=== PATIENT | female | born 1985 | race Caucasian/White ===

== ENCOUNTER 2019-11-18 22:48 | Emergency (ER) | payer OTHER ==
[2019-11-18] MEDS ORDERED: SODIUM CHLORIDE 0.9% 1,000 ML IV STA (23:17)
--- NOTE | 2019-11-18 23:25 | ED ---
Abdominal Pain HPI - General Chief Complaint: Abdominal Pain Stated Complaint: Chest Pain,Fever, Abdominal Pain Time Seen by Provider: 11/18/19 23:09 Source: patient, RN notes reviewed, old records reviewed Mode of arrival: ambulatory Limitations: no limitations - History of Present Illness Initial Comments: This is a 34-year-old female she presents today with nausea vomiting diarrhea and fever patient admits to chest pain and abdominal pain no recent travel history symptoms are progressing, No significant medical history denies drug or alcohol abuse. MD Complaint: abdominal pain -: days(s) Location: diffuse Migration to: no migration Severity: mild Severity scale (1-10): 3 Quality: aching Consistency: constant Improves With: nothing Worsens With: nothing Associated Symptoms: nausea, diarrhea - Related Data Allergies Allergy/AdvReac Type Severity Reaction Status Date / Time No Known Allergies Allergy Verified 11/18/19 23:00 Review of Systems ROS Statement: Those systems with pertinent positive or pertinent negative responses have been documented in the HPI. ROS Other: All systems not noted in ROS Statement are negative. Past Medical History Past Medical History: No Reported History History of Any Multi-Drug Resistant Organisms: None Reported Past Surgical History: Section Past Psychological History: No Psychological Hx Reported Smoking Status: Former smoker Past Alcohol Use History: None Reported Past Drug Use History: None Reported General Exam Limitations: no limitations General appearance: alert, in no apparent distress Head exam: Present: atraumatic, normocephalic, normal inspection Eye exam: Present: normal appearance, PERRL, EOMI. Absent: scleral icterus, conjunctival injection, periorbital swelling ENT exam: Present: normal exam, mucous membranes dry, mucous membranes moist Neck exam: Present: normal inspection. Absent: tenderness, meningismus, lymphadenopathy Respiratory exam: Present: normal lung sounds bilaterally. Absent: respiratory distress, wheezes, rales, rhonchi, stridor Cardiovascular Exam: Present: normal rhythm, tachycardia, normal heart sounds. Absent: systolic murmur, diastolic murmur, rubs, gallop, clicks GI/Abdominal exam: Present: soft, normal bowel sounds. Absent: distended, tenderness, guarding, rebound, rigid Extremities exam: Present: normal inspection, full ROM, normal capillary refill. Absent: tenderness, pedal edema, joint swelling, calf tenderness Back exam: Present: normal inspection Neurological exam: Present: alert, oriented X3, CN II-XII intact Psychiatric exam: Present: normal affect, normal mood Skin exam: Present: warm, dry, intact, normal color. Absent: rash Course Vital Signs 11/18/19 11/19/19 11/19/19 22:55 03:33 03:56 Temperature 101.8 F H 98.0 F Pulse Rate 132 H 67 Respiratory 22 16 Rate Blood Pressure 109/73 92/60 99/63 O2 Sat by Pulse 94 L 100 Oximetry - Reevaluation(s) Reevaluation #1: Medical record is reviewed patient continued with pain now progressing computed tomography scan Patient's symptoms improved currently Medical Decision Making - Medical Decision Making 32 female DF for evaluation symptoms apparently resolved now. Patient can be discharged home - Lab Data Result diagrams: 11/18/19 23:52 11/18/19 23:30 Lab Results 11/18/19 11/18/19 11/18/19 Range/Units 23:30 23:52 23:52 WBC 7.9 (3.8-10.6) k/uL RBC 4.91 (3.80-5.40) m/uL Hgb 14.8 (11.4-16.0) gm/dL Hct 44.6 (34.0-46.0) % MCV 90.8 (80.0-100.0) fL MCH 30.2 (25.0-35.0) pg MCHC 33.3 (31.0-37.0) g/dL RDW 13.0 (11.5-15.5) % Plt Count 208 (150-450) k/uL Neutrophils % 86 % Lymphocytes % 8 % Monocytes % 4 % Eosinophils % 2 % Basophils % 0 % Neutrophils # 6.7 (1.3-7.7) k/uL Lymphocytes # 0.7 L (1.0-4.8) k/uL Monocytes # 0.3 (0-1.0) k/uL Eosinophils # 0.1 (0-0.7) k/uL Basophils # 0.0 (0-0.2) k/uL PT 9.9 (9.0-12.0) sec INR 1.0 (<1.2) APTT 20.7 L (22.0-30.0) sec D-Dimer 1.14 H (<0.60) mg/L FEU Sodium 135 L (137-145) mmol/L Potassium 4.3 (3.5-5.1) mmol/L Chloride 108 H (98-107) mmol/L Carbon Dioxide 17 L (22-30) mmol/L Anion Gap 10 mmol/L BUN 14 (7-17) mg/dL Creatinine 0.74 (0.52-1.04) mg/dL Est GFR (CKD-EPI)AfAm >90 (>60 ml/min/1.73 sqM) Est GFR (CKD-EPI)NonAf >90 (>60 ml/min/1.73 sqM) Glucose 111 H (74-99) mg/dL Plasma Lactic Acid Pepe (0.7-2.0) mmol/L Calcium 9.1 (8.4-10.2) mg/dL Magnesium 1.8 (1.6-2.3) mg/dL Ferritin 54.1 (10.0-291.0) ng/mL Total Bilirubin 0.6 (0.2-1.3) mg/dL AST 45 H (14-36) U/L ALT 24 (4-34) U/L Alkaline Phosphatase 80 (38-126) U/L Lactate Dehydrogenase 704 H (313-618) U/L C-Reactive Protein 25.6 H (<10.0) mg/L Total Protein 7.4 (6.3-8.2) g/dL Albumin 4.3 (3.5-5.0) g/dL Lipase 139 (23-300) U/L Procalcitonin (0.02-0.09) ng/mL Coronavirus (PCR) (Not Detected) 11/18/19 11/18/19 11/18/19 Range/Units 23:52 23:52 23:59 WBC (3.8-10.6) k/uL RBC (3.80-5.40) m/uL Hgb (11.4-16.0) gm/dL Hct (34.0-46.0) % MCV (80.0-100.0) fL MCH (25.0-35.0) pg MCHC (31.0-37.0) g/dL RDW (11.5-15.5) % Plt Count (150-450) k/uL Neutrophils % % Lymphocytes % % Monocytes % % Eosinophils % % Basophils % % Neutrophils # (1.3-7.7) k/uL Lymphocytes # (1.0-4.8) k/uL Monocytes # (0-1.0) k/uL Eosinophils # (0-0.7) k/uL Basophils # (0-0.2) k/uL PT (9.0-12.0) sec INR (<1.2) APTT (22.0-30.0) sec D-Dimer (<0.60) mg/L FEU Sodium (137-145) mmol/L Potassium (3.5-5.1) mmol/L Chloride (98-107) mmol/L Carbon Dioxide (22-30) mmol/L Anion Gap mmol/L BUN (7-17) mg/dL Creatinine (0.52-1.04) mg/dL Est GFR (CKD-EPI)AfAm (>60 ml/min/1.73 sqM) Est GFR (CKD-EPI)NonAf (>60 ml/min/1.73 sqM) Glucose (74-99) mg/dL Plasma Lactic Acid Pepe 1.5 (0.7-2.0) mmol/L Calcium (8.4-10.2) mg/dL Magnesium (1.6-2.3) mg/dL Ferritin (10.0-291.0) ng/mL Total Bilirubin (0.2-1.3) mg/dL AST (14-36) U/L ALT (4-34) U/L Alkaline Phosphatase (38-126) U/L Lactate Dehydrogenase (313-618) U/L C-Reactive Protein (<10.0) mg/L Total Protein (6.3-8.2) g/dL Albumin (3.5-5.0) g/dL Lipase (23-300) U/L Procalcitonin 0.20 H (0.02-0.09) ng/mL Coronavirus (PCR) Not Detected (Not Detected) - EKG Data -: EKG Interpreted by Me (EKG is sinus tachycardia 126 120 QRS 60 QTC 446) - Radiology Data Radiology results: report reviewed (Chest x-ray x-ray KUB K chest CT abdomen and pelvis negative for acute disease), image reviewed Disposition Clinical Impression: Abdominal pain, Gastroenteritis Disposition: HOME SELF-CARE Condition: Good Instructions (If sedation given, give patient instructions): Gastroenteritis (ED) Is patient prescribed a controlled substance at d/c from ED?: No Referrals: None,Stated [Primary Care Provider] - 1-2 days
[2019-11-18] MEDS ORDERED: PANTOPRAZOLE 40 MG/10 ML VIAL IVP STA (23:36)
[2019-11-18] MEDS ORDERED: DICYCLOMINE 10 MG/ML 2 ML AMP IM STA (23:36)
[2019-11-18] MEDS ORDERED: KETOROLAC 30 MG/ML 1 ML VIAL IVP STA (23:36)
[2019-11-18] MEDS ORDERED: ONDANSETRON 4 MG/2 ML VIAL IVP STA (23:36)
[2019-11-18] MEDS ORDERED: ACETAMINOPHEN TAB 500 MG TAB PO STA (23:36)
[2019-11-19 00:07] LABS: Basophils % (A) 0 %; Eosinophils # (A) 0.1 k/uL (0-0.7); Eosinophils % (A) 2 %; HCT 44.6 % (34.0-46.0); HGB 14.8 gm/dL (11.4-16.0); Lymphocytes # (A) 0.7 k/uL (1.0-4.8); Lymphocytes % (A) 8 %; MCH 30.2 pg (25.0-35.0); MCHC 33.3 g/dL (31.0-37.0); MCV 90.8 fL (80.0-100.0); Mean Platelet Volume 8.3; Monocytes # (A) 0.3 k/uL (0-1.0); Monocytes % (A) 4 %; Neutrophils # (A) 6.7 k/uL (1.3-7.7); Neutrophils % (A) 86 %; Platelet Count 208 k/uL (150-450); RBC 4.91 m/uL (3.80-5.40); WBC 7.9 k/uL (3.8-10.6)
[2019-11-19 00:21] LABS: ALT 24 U/L (4-34); AST 45 U/L (14-36); African American GFR (CKD) >90 (>60 ml/min/1.73 sqM); Albumin 4.3 g/dL (3.5-5.0); Alkaline Phosphatase 80 U/L (38-126); Anion Gap 10 mmol/L; Blood Urea Nitrogen 14 mg/dL (7-17); C Reactive Protein 25.6 mg/L (<10.0); Calcium 9.1 mg/dL (8.4-10.2); Carbon Dioxide 17 mmol/L (22-30); Chloride 108 mmol/L (98-107); Glucose 111 mg/dL (74-99); LDH 704 U/L (313-618); Magnesium 1.8 mg/dL (1.6-2.3); Non-African American GFR(CKD) >90 (>60 ml/min/1.73 sqM); Potassium 4.3 mmol/L (3.5-5.1); Sodium 135 mmol/L (137-145); Total Bilirubin 0.6 mg/dL (0.2-1.3); Total Protein 7.4 g/dL (6.3-8.2)
[2019-11-19 00:26] LABS: Prothrombin Time 9.9 sec (9.0-12.0)
[2019-11-19 00:32] LABS: D-Dimer 1.14 mg/L FEU (<0.60); Partial Thromboplastin Time 20.7 sec (22.0-30.0)
--- NOTE | 2019-11-19 01:07 | XR ---
EXAMINATION TYPE: XR chest 1V portable DATE OF EXAM: 11/19/2019 COMPARISON: NONE HISTORY: Short of breath TECHNIQUE: Single view FINDINGS: Heart and mediastinum are normal. Lungs are clear. Diaphragm is normal. Bony thorax appears normal. IMPRESSION: Normal chest. Normal heart.
--- NOTE | 2019-11-19 01:08 | XR ---
EXAMINATION TYPE: XR KUB DATE OF EXAM: 11/19/2019 COMPARISON: NONE HISTORY: Abdominal pain TECHNIQUE: 2 views supine FINDINGS: There is no sign of intestinal obstruction or pneumoperitoneum. Fecal pattern is normal. Th ere is no sign of a mass. There is IUD noted. There are no pathologic calcifications over the kidneys . IMPRESSION: Nonacute abdomen.
--- NOTE | 2019-11-19 02:58 | CT ---
EXAMINATION TYPE: CT angio chest DATE OF EXAM: 11/19/2019 COMPARISON: None HISTORY: Elevated D-Dimer CT DLP: 858.8 mGycm Automated exposure control for dose reduction was used. CONTRAST: Performed with IV Contrast, patient injected with 100 mL of Isovue 370. There are 3-D post processed images. The lungs are clear of infiltrate. There is no evidence of pleural effusion or pneumothorax. Heart si ze is normal. There is no pericardial effusion. There are no hilar masses. There is no mediastinal adenopathy. Thoracic spine is intact. There is no compression fracture. Bony thorax is intact. Upper abdominal so ft tissues are intact. There is normal contrast opacification of the pulmonary arteries. There are no filling defects. IMPRESSION: Negative CT scan of the chest. No evidence of pulmonary embolism.
--- NOTE | 2019-11-19 03:03 | CT ---
EXAMINATION TYPE: CT abdomen pelvis w con DATE OF EXAM: 11/19/2019 COMPARISON: None HISTORY: Fever CT DLP: 2262.2 mGycm Automated exposure control for dose reduction was used. CONTRAST: Performed with IV Contrast, patient injected with 100 mL of Isovue 370. Lung bases are clear. There is no pleural effusion. Liver spleen stomach pancreas gallbladder appear normal. Bile ducts are not dilated. Gallbladder is contracted. There is no adrenal mass. Kidneys show satisfactory contrast opacification. There is no hydronephrosi s. There is normal excretion on the delayed images. There is no retroperitoneal adenopathy. Ureters a re not dilated. Bladder distends smoothly. There is IUD in the uterus. Uterus is anteverted. There is no free fluid in the pelvis. There is no inguinal hernia. There is no evidence of pelvic mass. There is no mesenteric edema. There is no ascites or free air. There is no sign of a bowel obstructio n. Appendix is posterior and appears normal. Lumbar vertebra have normal spacing and alignment. Poste rior elements are intact. Bony pelvis is intact. IMPRESSION: Negative CT scan of the abdomen pelvis. Normal appendix.
[2019-11-19] MEDS ORDERED: ONDANSETRON 4 MG ODT STARTER PACK 2 TAB BTL PO STA (03:14)
[2019-11-19] MEDS ORDERED: SODIUM CHLORIDE 0.9% 1,000 ML IV STA (03:15)
[2019-11-19 03:33] VITALS: PULSE 67; RESP 16; TEMP 98
[2019-11-19 04:01] VITALS: BP 99/63
[2019-11-19 11:16] LABS: Ferritin 54.1 ng/mL (10.0-291.0)
== END 2019-11-19 04:18 | disposition home or self-care (01) ==
LOC: EC 22:48
DX: K52.9 Noninfective gastroenteritis and colitis, unspecified (principal); R07.9 Chest pain, unspecified; Z20.828 Contact with and (suspected) exposure to other viral communicable diseases; Z87.891 Personal history of nicotine dependence; Z53.8 Procedure and treatment not carried out for other reasons
CPT/HCPCS: 99285; 96374; 96375 ×2; 96361; 96372; 36415; 93005; 85379; 80053; 82728; 83605; 83615; 83690; 83735; 85025; 85610; 85730; 86140; 87040; 84145; 71045; 74018; 71275; 74177; U0003; J0500; J2405; J1885; S0119; C9113; Q9967

== ENCOUNTER 2020-09-11 09:40 | Emergency (ER) | payer OTHER ==
--- NOTE | 2020-09-11 10:18 | ED ---
URI HPI - General Chief Complaint: Upper Respiratory Infection Stated Complaint: fever/body aches Time Seen by Provider: 09/11/20 09:44 Source: patient Limitations: no limitations - History of Present Illness Initial Comments: 35-year-old female presenting today for chief complaint of fevers body aches and cough. Patient states she's had fever body aches and cough since Monday. Patient states that she has some slight shortness of breath he said today she takes a deep breath it feels tight she denies a sharp stabbing pain she denies hemoptysis lower extremity swelling. She denies any history of DVT pulmonary embolism. 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 Patient denies any exogenous hormone use. Patient denies any recent surgeries immobilization. Patient denies any nausea vomiting diarrhea or abdominal pain. Upon arrival patient appears well nontoxic distress. feel very warm to touch - Related Data Home Medications Medication Instructions Recorded Confirmed No Known Home Medications 09/11/20 09/11/20 Allergies Allergy/AdvReac Type Severity Reaction Status Date / Time No Known Allergies Allergy Verified 09/11/20 11:07 Review of Systems ROS Statement: Those systems with pertinent positive or pertinent negative responses have been documented in the HPI. ROS Other: All systems not noted in ROS Statement are negative. Past Medical History Past Medical History: No Reported History History of Any Multi-Drug Resistant Organisms: None Reported Past Surgical History: Section Past Psychological History: No Psychological Hx Reported Smoking Status: Never smoker Past Alcohol Use History: None Reported Past Drug Use History: None Reported General Exam - General Exam Comments Initial Comments: General: The patient is awake and alert, in no distress, and does not appear acutely ill. Eye: Pupils are equal, round and reactive to light, extra-ocular movements are intact. No nystagmus. There is normal conjunctiva bilaterally. No signs of icterus. Ears, nose, mouth and throat: There are moist mucous membranes and no oral lesions. Neck: The neck is supple, there is no tenderness or JVD. Cardiovascular: There is a regular rate and rhythm. No murmur, rub or gallop is appreciated. Respiratory: Lungs are clear to auscultation, respirations are non-labored, breath sounds are equal. No wheezes, stridor, rales, or rhonchi. Musculoskeletal: Normal ROM, no tenderness. Strength 5/5. Sensation intact. Pulses equal bilaterally 2+. Neurological: A&O x 3. CN II-XII intact, There are no obvious motor or sensory deficits. Coordination appears grossly intact. Speech is normal. Skin: Skin is warm and dry and no rashes or lesions are noted. Psychiatric: Cooperative, appropriate mood & affect, normal judgment. Limitations: no limitations Course Vital Signs 09/11/20 09/11/20 09:42 10:48 Temperature 99 F 98.9 F Pulse Rate 110 H 106 H Respiratory 22 18 Rate Blood Pressure 118/80 114/65 O2 Sat by Pulse 96 96 Oximetry Medical Decision Making - Medical Decision Making Very well-appearing 35-year-old female. Chest x-ray reveals a pneumonia felt to be likely viral given patient's covert positive test. Patient appears in no distress she is saturating well on room air. She denies any sharp chest pains or pain with deep inspiration. Patient has no extremity findings. She is very warm to touch and temperature in room on my measurement 99.9F. pt given tylenol. pt will be discharged with pcp f/u. discussed monoclonal ab risk vs benefit and pt would like to decline at this time. - Lab Data Lab Results 09/11/20 Range/Units 09:56 Coronavirus (PCR) Detected A (Not Detectd) Disposition Clinical Impression: Fever, Body aches, Cough, Pneumonia due to COVID-19 virus Disposition: HOME SELF-CARE Condition: Good Instructions (If sedation given, give patient instructions): Coronavirus Disease 2019 (COVID-19) Additional Instructions: Please use medication as discussed. Please follow-up with family doctor in the next 2 days. Please return to emergency room if the symptoms increase or worsen or for any other concerns. Is patient prescribed a controlled substance at d/c from ED?: No Referrals: None,Stated [Primary Care Provider] - 1-2 days Time of Disposition: 11:19
--- NOTE | 2020-09-11 10:35 | XR ---
EXAMINATION TYPE: XR chest 2V DATE OF EXAM: 09/11/2020 COMPARISON: Chest x-ray 11/19/2019 HISTORY: Covid symptoms, infection TECHNIQUE: Frontal and lateral views of the chest are obtained. FINDINGS: Airspace disease is present in the right upper lobe. No evident pneumothorax or pleural ef fusion. Cardiac mediastinal silhouette is stable. There is a spinal curvature. IMPRESSION: Correlate for right upper lobe pneumonia.
[2020-09-11 10:49] VITALS: BP 114/65; PULSE 106; RESP 18; TEMP 98.9
[2020-09-11] MEDS ORDERED: ACETAMINOPHEN TAB 325 MG TAB PO STA (10:53)
== END 2020-09-11 11:30 | disposition home or self-care (01) ==
LOC: EC 09:40
DX: U07.1 COVID-19 (principal); J12.82 Pneumonia due to coronavirus disease 2019
CPT/HCPCS: 71046; 87635; 99285

== ENCOUNTER 2020-09-12 16:33 | Emergency (ER) | payer OTHER ==
[2020-09-12] MEDS ORDERED: ACETAMINOPHEN TAB 325 MG TAB PO STA (16:49)
[2020-09-12] MEDS ORDERED: SODIUM CHLORIDE 0.9% 1,000 ML IV STA (16:49)
--- NOTE | 2020-09-12 17:09 | ED ---
Fever HPI - General Chief Complaint: Fever Stated Complaint: YAMILET Time Seen by Provider: 09/12/20 16:48 Source: patient, RN notes reviewed Mode of arrival: ambulatory Limitations: no limitations - History of Present Illness Initial Comments: Well-appearing, well-nourished, 35-year-old white female patient presents to the emergency room with complaints of body aches that started on September 05, patient states took 2 home test and both negative for covid, came to the emergency room today with shortness of breath and fever and worsening body aches and tested positive. Patient was seen yesterday for the same return today because she feels worse. Patient states yesterday she declined monoclonal antibodies because she is breast-feeding and there wasn't enough research. Patient denies any medical history, is not a smoker, does not take any medications on a daily basis. Patient states body aches or 8 out of 10.. Patient able to tolerate fluids orally. -: days(s) (7) Temperature Source: oral Associated Symptoms: myalgias, shortness of breath Treatments Prior to Arrival: none - Related Data Previous Rx's Medication Instructions Recorded Albuterol Inhaler [Ventolin Hfa 1 puff INHALATION RT-QID PRN 30 09/11/20 Inhaler] Days #30 puff Allergies Allergy/AdvReac Type Severity Reaction Status Date / Time No Known Allergies Allergy Verified 09/12/20 16:37 Review of Systems ROS Statement: Those systems with pertinent positive or pertinent negative responses have been documented in the HPI. ROS Other: All systems not noted in ROS Statement are negative. Past Medical History Past Medical History: No Reported History Additional Past Medical History / Comment(s): Covid 09/09 History of Any Multi-Drug Resistant Organisms: None Reported Past Surgical History: Section Past Psychological History: No Psychological Hx Reported Smoking Status: Never smoker Past Alcohol Use History: None Reported Past Drug Use History: None Reported General Exam Limitations: no limitations General appearance: alert, in no apparent distress Head exam: Present: atraumatic, normocephalic, normal inspection Eye exam: Present: normal appearance, PERRL, EOMI. Absent: scleral icterus, conjunctival injection, periorbital swelling ENT exam: Present: normal exam, normal oropharynx, mucous membranes moist Neck exam: Present: normal inspection, full ROM. Absent: tenderness, meningismus, lymphadenopathy, thyromegaly Respiratory exam: Present: normal lung sounds bilaterally (diminished at bases r/t body habitus). Absent: respiratory distress, wheezes, rales, rhonchi, stridor Cardiovascular Exam: Present: tachycardia, normal heart sounds GI/Abdominal exam: Present: soft, normal bowel sounds. Absent: distended, tenderness, guarding, rebound, rigid Neurological exam: Present: alert, oriented X3, CN II-XII intact Psychiatric exam: Present: normal affect, normal mood Skin exam: Present: warm, dry, intact, normal color. Absent: rash Course Vital Signs 09/12/20 09/12/20 09/12/20 16:34 17:37 18:00 Temperature 101.1 F H Pulse Rate 117 H 111 H 111 H Respiratory 24 18 18 Rate Blood Pressure 104/64 128/82 123/79 O2 Sat by Pulse 93 L 95 95 Oximetry 09/12/20 09/12/20 09/12/20 19:08 19:09 20:00 Temperature 99.2 F 98.9 F Pulse Rate 104 H 107 H Respiratory 18 18 22 Rate Blood Pressure 118/78 103/61 O2 Sat by Pulse 95 94 L Oximetry Medical Decision Making - Medical Decision Making Chest x-ray the right upper lobe pneumonia similar to the scene or slight improvement from yesterday. WBC count 2.9. Patient agreed to monoclonal antibodies and tolerated well. Patient will be discharged home after infusion to follow up with the primary care doctor. Case discussed with Dr. Carr who was agreeable to this plan of care - Lab Data Result diagrams: 09/12/20 17:03 09/12/20 17:03 Lab Results 09/12/20 09/12/20 09/12/20 Range/Units 17:03 17:03 17:03 WBC 2.9 L (3.8-10.6) k/uL RBC 5.01 (3.80-5.40) m/uL Hgb 13.2 (11.4-16.0) gm/dL Hct 41.0 (34.0-46.0) % MCV 81.9 (80.0-100.0) fL MCH 26.4 (25.0-35.0) pg MCHC 32.3 (31.0-37.0) g/dL RDW 14.7 (11.5-15.5) % Plt Count 193 (150-450) k/uL MPV 8.7 Neutrophils % 59 % Lymphocytes % 32 % Monocytes % 5 % Eosinophils % 1 % Basophils % 1 % Neutrophils # 1.7 (1.3-7.7) k/uL Lymphocytes # 0.9 L (1.0-4.8) k/uL Monocytes # 0.1 (0-1.0) k/uL Eosinophils # 0.0 (0-0.7) k/uL Basophils # 0.0 (0-0.2) k/uL Sodium 135 L (137-145) mmol/L Potassium 4.6 (3.5-5.1) mmol/L Chloride 103 (98-107) mmol/L Carbon Dioxide 25 (22-30) mmol/L Anion Gap 7 mmol/L BUN 10 (7-17) mg/dL Creatinine 0.77 (0.52-1.04) mg/dL Est GFR (CKD-EPI)AfAm >90 (>60 ml/min/1.73 sqM) Est GFR (CKD-EPI)NonAf >90 (>60 ml/min/1.73 sqM) Glucose 85 (74-99) mg/dL Plasma Lactic Acid Pepe 0.8 (0.7-2.0) mmol/L Calcium 8.4 (8.4-10.2) mg/dL Total Bilirubin 0.4 (0.2-1.3) mg/dL AST 27 (14-36) U/L ALT 14 (4-34) U/L Alkaline Phosphatase 67 (38-126) U/L Total Protein 6.8 (6.3-8.2) g/dL Albumin 3.9 (3.5-5.0) g/dL Disposition Clinical Impression: COVID-19, Pneumonia due to COVID-19 virus Disposition: HOME SELF-CARE Condition: Fair Instructions (If sedation given, give patient instructions): Coronavirus Disease 2019 (COVID-19) Additional Instructions: Continue oral hydration at home, take vitamin D, vitamin C and zinc. Follow-up with your doctor within 1 week Is patient prescribed a controlled substance at d/c from ED?: No Referrals: None,Stated [Primary Care Provider] - 1-2 days Time of Disposition: 21:20
[2020-09-12 17:11] LABS: Basophils % (A) 1 %; Eosinophils % (A) 1 %; HGB 13.2 gm/dL (11.4-16.0); Lymphocytes # (A) 0.9 k/uL (1.0-4.8); Lymphocytes % (A) 32 %; MCH 26.4 pg (25.0-35.0); MCHC 32.3 g/dL (31.0-37.0); MCV 81.9 fL (80.0-100.0); Mean Platelet Volume 8.7; Monocytes # (A) 0.1 k/uL (0-1.0); Monocytes % (A) 5 %; Neutrophils # (A) 1.7 k/uL (1.3-7.7); Neutrophils % (A) 59 %; Platelet Count 193 k/uL (150-450); RBC 5.01 m/uL (3.80-5.40); RDW 14.7 % (11.5-15.5); WBC 2.9 k/uL (3.8-10.6)
[2020-09-12 17:22] LABS: ALT 14 U/L (4-34); AST 27 U/L (14-36); African American GFR (CKD) >90 (>60 ml/min/1.73 sqM); Albumin 3.9 g/dL (3.5-5.0); Alkaline Phosphatase 67 U/L (38-126); Anion Gap 7 mmol/L; Blood Urea Nitrogen 10 mg/dL (7-17); Calcium 8.4 mg/dL (8.4-10.2); Carbon Dioxide 25 mmol/L (22-30); Chloride 103 mmol/L (98-107); Glucose 85 mg/dL (74-99); Non-African American GFR(CKD) >90 (>60 ml/min/1.73 sqM); Potassium 4.6 mmol/L (3.5-5.1); Sodium 135 mmol/L (137-145); Total Bilirubin 0.4 mg/dL (0.2-1.3); Total Protein 6.8 g/dL (6.3-8.2)
--- NOTE | 2020-09-12 17:37 | XR ---
EXAMINATION TYPE: XR chest 2V DATE OF EXAM: 09/12/2020 COMPARISON: Yesterday HISTORY: Chest pain TECHNIQUE: FINDINGS: There is some airspace infiltrate in the posterior segment of the right upper lobe adjacent to the major fissure. The left lung is clear. There is no heart failure. Heart size is normal. IMPRESSION: Right upper lobe pneumonia is the same or slightly improved compared to yesterday. Normal heart.
[2020-09-12] MEDS ORDERED: SODIUM CHLORIDE 0.9% 50 ML IVPB ONE (19:45)
[2020-09-12] MEDS ORDERED: BAMLANIVIMAB (EUA) 700 MG, ETESEVIMAB (EUA) 1,400 MG in SODIUM CHLORIDE 0.9% 50 ML IVPB ONE (20:00)
[2020-09-12 21:54] VITALS: BP 108/67; PULSE 106; RESP 18; TEMP 98
== END 2020-09-12 21:57 | disposition home or self-care (01) ==
LOC: EC 16:33
DX: U07.1 COVID-19 (principal); J12.82 Pneumonia due to coronavirus disease 2019
CPT/HCPCS: 36415; 80053; 83605; 85025; 71046; 99285; 96360; Q0245

== ENCOUNTER 2021-11-10 10:45 | Emergency (ER) | payer OTHER ==
[2021-11-10 11:41] VITALS: BP 109/80; PULSE 87; RESP 20; TEMP 99.3
--- NOTE | 2021-11-10 12:25 | ED ---
Skin/Abscess/FB HPI - General Chief complaint: Skin/Abscess/Foreign Body Stated complaint: skin problem Time Seen by Provider: 11/10/21 11:42 Source: patient Mode of arrival: ambulatory Limitations: no limitations - History of Present Illness Initial comments: This is a 36-year-old female who presents to the emergency department for evaluation of rash. I personally evaluated patient's children during this same visit who were diagnosed with ringworm. Patient has 1 lesion on her left chin. States that it looked like a pimple which she picked at, resulting in a scab. She is concerned that she has ringworm as well. Denies other lesions on her body. Denies fever, chills, upper respiratory symptoms, or other concerns. - Related Data Home Medications Medication Instructions Recorded Confirmed Acetaminophen Tab [Tylenol Tab] 1,000 mg PO Q6HR PRN 05/26/21 05/26/21 Albuterol Inhaler [Ventolin Hfa 2 puff INHALATION RT-QID PRN 05/26/21 05/26/21 Inhaler] Allergies Allergy/AdvReac Type Severity Reaction Status Date / Time No Known Allergies Allergy Verified 05/26/21 21:35 Review of Systems ROS Statement: Those systems with pertinent positive or pertinent negative responses have been documented in the HPI. ROS Other: All systems not noted in ROS Statement are negative. Past Medical History Past Medical History: No Reported History Additional Past Medical History / Comment(s): Covid 09/09 History of Any Multi-Drug Resistant Organisms: None Reported Past Surgical History: Section Past Psychological History: No Psychological Hx Reported Smoking Status: Never smoker Past Alcohol Use History: None Reported Past Drug Use History: None Reported General Exam Limitations: no limitations General appearance: alert Head exam: Present: atraumatic, normocephalic, normal inspection Eye exam: Present: normal appearance, PERRL, EOMI. Absent: scleral icterus, conjunctival injection, periorbital swelling Neck exam: Present: normal inspection. Absent: tenderness, meningismus, lymphadenopathy Respiratory exam: Present: normal lung sounds bilaterally. Absent: respiratory distress, wheezes, rales, rhonchi, stridor Cardiovascular Exam: Present: regular rate, normal rhythm, normal heart sounds. Absent: systolic murmur, diastolic murmur, rubs, gallop, clicks Neurological exam: Present: alert, oriented X3, CN II-XII intact Psychiatric exam: Present: normal affect, normal mood Skin exam: Present: warm, dry, intact, normal color, abrasion (left chin ). Absent: rash Course Vital Signs 11/10/21 11:34 Temperature 99.3 F Pulse Rate 87 Respiratory 20 Rate Blood Pressure 109/80 O2 Sat by Pulse 97 Oximetry Medical Decision Making - Medical Decision Making This is a 36-year-old female who presents for evaluation of possible rash. Thorough history and examination were performed. Patient's children were personally evaluated by myself during this same visit. They were diagnosed with ringworm. Patient has one scab over the left chin which she states looked like a pimple before before picking. Based on patient's description and her current scab now this does not appear to be ringworm. It looks like a small abrasion with scabbing. No surrounding erythema, edema, or drainage to suggest infection. Patient reassured that this does not resemble a ringworm lesion however if she starts to develop lesions of similar characteristics she is instructed to use the topical antifungal that her children were provided with. She will be discharged. She verbalizes understanding and is agreeable to this plan. Dr. Morton is my attending. Disposition Clinical Impression: Abrasion Disposition: HOME SELF-CARE Condition: Good Instructions (If sedation given, give patient instructions): Abrasion (ED) Additional Instructions: Please keep the wound clean and dry. If you start to experience a rash that looks similar to your children's you can apply the antifungal cream. Follow-up with primary care provider in one to 2 days. Return to the emergency department if you experience new, concerning, or worsening symptoms Is patient prescribed a controlled substance at d/c from ED?: No Referrals: None,Stated [Primary Care Provider] - 1-2 days Time of Disposition: 12:25
== END 2021-11-10 12:44 | disposition home or self-care (01) ==
LOC: EC 10:45
DX: S00.81XA Abrasion of other part of head, initial encounter (principal); X58.XXXA Exposure to other specified factors, initial encounter
CPT/HCPCS: 99283